=== PATIENT | female | born 1940 | race Caucasian/White ===

== ENCOUNTER 2020-04-16 07:53 | Day surgery (SDC) | payer MEDICARE, BC ==
[2020-04-09 15:36] LABS: BASOPHILS % (AUTO) 0.4 % (0-1); EOSINOPHILS # (AUTO) 0.3 X10'3 (0-0.9); EOSINOPHILS % (AUTO) 4.4 % (0-6); LYMPHOCYTES # (AUTO) 2.2 X10'3 (1.1-4.8); LYMPHOCYTES % (AUTO) 28.8 % (21-51); MEAN CORPUSCULAR HEMOGLOBIN 31.1 PG (27.0-31.0); MEAN CORPUSCULAR HGB CONC 33.8 g/dL (33.0-36.5); MEAN CORPUSCULAR VOLUME 92.1 FL (78-98); MONOCYTES # (AUTO) 0.7 X10'3 (0-0.9); MONOCYTES % (AUTO) 9.3 % (2-12); NEUTROPHILS # (AUTO) 4.3 X10'3 (1.8-7.7); NEUTROPHILS % (AUTO) 57.1 % (42-75); PRE OP HEMATOCRIT 38.3 % (35.0-45.0); PRE OP HEMOGLOBIN 12.9 g/dL (12.0-16.0); PRE OP PLATELET COUNT 343 X10'3 (140-440); RED BLOOD COUNT 4.16 X10'6 (4.20-5.60); RED CELL DISTRIBUTION WIDTH 13.2 % (11.5-14.5)
[2020-04-09 15:49] LABS: PRE OP PROTIME 10.3 SECONDS (9.0-12.0)
[2020-04-09 15:56] LABS: ALBUMIN 3.9 G/DL (3.4-5.0); ALBUMIN/GLOBULIN RATIO 0.9 (1.1-1.5); ALKALINE PHOSPHATASE 56 IU/L (46-116); BLOOD UREA NITROGEN 23 MG/DL (7-18); BUN/CREATININE RATIO 20.7 (6.6-38.0); CALCIUM 8.8 MG/DL (8.5-10.1); CHLORIDE 105 MMOL/L (99-107); CREATININE 1.11 MG/DL (0.40-0.90); PRE OP ALT 37 U/L (30-65); PRE OP ANION GAP 10 (8-16); PRE OP BILIRUB, TOTAL 0.4 MG/DL (0.0-1.0); PRE OP POTASSIUM 4.1 MMOL/L (3.4-5.1); PRE OP SODIUM 141 MMOL/L (135-145); TOTAL CARBON DIOXIDE 25.6 MMOL/L (24-32); TOTAL PROTEIN 8.2 G/DL (6.4-8.2); eGFR 47 ML/MIN
[2020-04-09 16:02] LABS: PRE OP GLUCOSE 110 MG/DL (70-104)
[2020-04-09 16:16] LABS: PRE OP AST 35 U/L (10-37)
[~2020-04-16] VITALS: Ht 149.9 cm; Wt 65.9 kg
[~2020-04-16 07:53] MED LIST: ALBU2.5V10 NEB; ALEN70TA80 PO; ASPI-1265 PO; CELE200C PO; CLOP75TA35 PO; DICY10CA18 PO; DOCUMENT DATE & TIME OF BETA-BLOCKER PO ONE; LIDOcaine 0.5% (5mg/ml) 50ml vial ONE; LISI10TA4 PO; LOVA10TA56 PO; METO-384 PO; ceFAZolin 2gm in dextrose, iso 50 ML IV ONE; famotidine 20mg tablet PO ONE; ringers solution, lacted 1,000 ML IV SCH
[2020-04-16] MEDS ORDERED: ringers solution, lacted 1,000 ML IV SCH (09:20)
[2020-04-16] MEDS ORDERED: ondansetron/PF 4mg/2ml inj IV PRN (09:20)
[2020-04-16] MEDS ORDERED: hydrALAZINE 20mg/ml inj. IV PRN (09:20)
[2020-04-16] MEDS ORDERED: morphine 4 MG/ML inj SYRINge IV PRN (09:20)
[2020-04-16] MEDS ORDERED: labetalol 20mg/4ml (5mg/ml) syringe IV PRN (09:20)
[2020-04-16] MEDS ORDERED: morphine 2 MG/ML inj. syringe IV PRN (09:20)
[2020-04-16] MEDS ORDERED: fentaNYL/PF 50MCG/1 ML 2ML syringe IV PRN ×2 (09:20)
[2020-04-16] MEDS ORDERED: BUPIVAcaine/PF 2.5 mg/ml (0.25%) 30ml vial ONE (11:11)
[2020-04-16 11:18] VITALS: BP 131/51
[2020-04-16] MEDS ORDERED: MIDAZolam 1mg/ml 10ml vial ONE (11:18)
[2020-04-16] MEDS ORDERED: fentaNYL/PF 50MCG/1 ML 2ML syringe ONE (11:18)
[2020-04-16] MEDS ORDERED: ketorolac trometh. 30mg/ml inj. ONE (11:23)
[2020-04-16 11:24] VITALS: BP 131/51
[2020-04-16 12:00] VITALS: BP 137/60
--- NOTE | 2020-04-16 12:00 | NUR ---
Received from OR via enoc, accompanied by Anesthesiologist Jose and report given by Anesthesiolgist. Right hand and elbow dressed and wrapped with COLLINS wrap, fingers exposed, pink and good cap refill. 20G left upper extrem IVF LR at 100cc/hr. VS stable, patient on room air. Ice applied to right hand.
[2020-04-16 12:10] VITALS: BP 135/67
[2020-04-16 12:20] VITALS: BP 129/70
[2020-04-16 12:30] VITALS: BP 138/68
--- NOTE | 2020-04-16 12:50 | NUR ---
Pt discharged to vehicle by wheelchair without incident after IV DC'd. Dressings remain CDI. Ice pack given to patient and they are going to pharmacy to tow picker pain meds. All belongings returned to patient. She and daughter verbalized understanding of all DC instructions. Comfortable and stable for discharge.
== END 2020-04-16 12:50 | disposition home or self-care (01) ==
LOC: PAS 07:53
PROVIDERS: ATTEND Orthopaedic Surgery Hand Surgery
DX: G56.01 Carpal tunnel syndrome, right upper limb (principal); G56.21 Lesion of ulnar nerve, right upper limb; M65.321 Trigger finger, right index finger; J44.9 Chronic obstructive pulmonary disease, unspecified; M81.0 Age-related osteoporosis without current pathological fracture; I10 Essential (primary) hypertension; I25.2 Old myocardial infarction; Z79.01 Long term (current) use of anticoagulants; Z79.899 Other long term (current) drug therapy; Z79.82 Long term (current) use of aspirin; Z88.2 Allergy status to sulfonamides; Z90.710 Acquired absence of both cervix and uterus; Z98.890 Other specified postprocedural states; Z88.8 Allergy status to other drugs, medicaments and biological substances; Z95.5 Presence of coronary angioplasty implant and graft; Z20.828 Contact with and (suspected) exposure to other viral communicable diseases
CPT/HCPCS: 26055; 36415; 64718; 64721; 80053; 82948; 85025; 85610; 85730; 87635; A6222; J1885; J2001; J2250; J3010; J3490; A4215; A6449; J7120

== ENCOUNTER 2021-09-05 13:19 | Emergency (ER) | payer MEDICARE, BC ==
[~2021-09-05] VITALS: Ht 147.3 cm; Wt 64.5 kg
[~2021-09-05 13:19] MED LIST changes: +CLOP75TA34 PO; -CLOP75TA35 PO; -DOCUMENT DATE & TIME OF BETA-BLOCKER PO ONE; -LIDOcaine 0.5% (5mg/ml) 50ml vial ONE; +LISI10TA27 PO; -LISI10TA4 PO; -ceFAZolin 2gm in dextrose, iso 50 ML IV ONE; -famotidine 20mg tablet PO ONE; -ringers solution, lacted 1,000 ML IV SCH
[2021-09-05 13:48] LABS: BASOPHILS % (AUTO) 0.4 % (0-1); EOSINOPHILS # (AUTO) 0.2 X10'3 (0-0.9); EOSINOPHILS % (AUTO) 2.4 % (0-6); HEMOGLOBIN 13.6 g/dl (12.0-16.0); LYMPHOCYTES # (AUTO) 2.9 X10'3 (1.1-4.8); LYMPHOCYTES % (AUTO) 37.1 % (21-51); MEAN CORPUSCULAR HEMOGLOBIN 30.7 PG (27.0-31.0); MEAN CORPUSCULAR HGB CONC 33.9 g/dL (33.0-36.5); MEAN CORPUSCULAR VOLUME 90.5 FL (78-98); MEAN PLATELET VOLUME 7.9 FL (7.4-10.4); MONOCYTES # (AUTO) 0.6 X10'3 (0-0.9); MONOCYTES % (AUTO) 7.5 % (2-12); NEUTROPHILS # (AUTO) 4.1 X10'3 (1.8-7.7); NEUTROPHILS % (AUTO) 52.6 % (42-75); PLATELET COUNT 326 X10'3 (140-440); RED BLOOD COUNT 4.42 X10'6 (4.20-5.60); RED CELL DISTRIBUTION WIDTH 13.6 % (11.5-14.5); WHITE BLOOD COUNT 7.7 X10'3 (4.5-11.0)
[2021-09-05 14:03] LABS: ALANINE AMINOTRANSFERASE 34 U/L (12-78); ALKALINE PHOSPHATASE 36 IU/L (46-116); ANION GAP 10 (8-16); ASPARTATE AMINO TRANSFERASE 25 U/L (10-37); BILIRUBIN,TOTAL 0.7 MG/DL (0.1-1.0); BLOOD UREA NITROGEN 23 MG/DL (7-18); BUN/CREATININE RATIO 18.7 (6.6-38.0); CALCIUM 9.8 MG/DL (8.5-10.1); CHLORIDE 107 MMOL/L (99-107); CREATININE 1.23 MG/DL (0.40-0.90); GLUCOSE 135 MG/DL (70-104); POTASSIUM 4.1 MMOL/L (3.5-5.1); SODIUM 141 MMOL/L (135-145); TOTAL CARBON DIOXIDE 23.6 MMOL/L (24-32); eGFR 42 ML/MIN
[2021-09-05 15:40] VITALS: BP 169/55
[2021-09-05 16:55] LABS: D-DIMER 0.39 MG/L FEU (0-0.50)
== END 2021-09-05 17:31 | disposition home or self-care (01) ==
LOC: ER 13:20
DX: R07.89 Other chest pain (principal); R53.1 Weakness; R06.02 Shortness of breath; R42 Dizziness and giddiness; H54.8 Legal blindness, as defined in USA; E78.00 Pure hypercholesterolemia, unspecified; I10 Essential (primary) hypertension; I25.2 Old myocardial infarction; Z86.79 Personal history of other diseases of the circulatory system; Z87.19 Personal history of other diseases of the digestive system; Z87.440 Personal history of urinary (tract) infections; Z87.442 Personal history of urinary calculi; Z90.49 Acquired absence of other specified parts of digestive tract; Z90.710 Acquired absence of both cervix and uterus; Z88.2 Allergy status to sulfonamides; Z79.82 Long term (current) use of aspirin; Z79.899 Other long term (current) drug therapy
CPT/HCPCS: 36415; 71045; 80053; 83880; 84484; 85025; 85379; 93005; 99285